=== PATIENT | male | born 1930 | race Caucasian/White ===

== ENCOUNTER 2019-08-05 17:15 | Emergency (ER) | payer SELFPAY ==
[2019-08-05] MEDS ORDERED: Sodium Chloride 0.9% 10 ML Syringe FLUSH PRN (17:33)
[2019-08-05 18:00] LABS: ANION GAP 13.9; CHLORIDE,CL 105 mmol/L (101-111); SODIUM,NA 137 mmol/L (135-145)
--- NOTE | 2019-08-05 18:43 | EDM.PDOC ---
Scribed by Daily Segura 08/05/19 [id number] for Jamshid Arshad MD ED HPI GENERAL MEDICAL PROBLEM - General Chief Complaint: Respiratory Problem Stated Complaint: AMBULANCE Time Seen by Provider: 08/05/19 17:25 Source of Information: Reports: Patient, EMS, EMS Notes Reviewed, RN, RN Notes Reviewed History Limitations: Reports: No Limitations - History of Present Illness INITIAL COMMENTS - FREE TEXT/NARRATIVE: Pt arrives from [facility] in [place] by ambulance with report of shortness of breath, fever, and A-fib. On arrival pt states that he was just discharged from [facility] for pneumonia. Pt states he wanted to be taken to [facility], and does not want to be in [place]. Pt denies chest pain or edema. Discharge summary from [facility] has been requested. [place] director was contacted and states that the patient was discharged from [facility] on 07/31/19 and Home Health Services began setting up his medications from him. Prior to the [facility] admission he was completely independent. Today they noticed that he had new onset confusion. They state that he was not able to take his medications and therefore did not take any of his medications today. The staff also noted a small amount of blood at the front of his underpants and believe that he had some hematuria. He was started on Eliquis sometime in the past couple 1 to 2 weeks. Onset: Unknown/Unsure - Related Data Allergies Allergy/AdvReac Type Severity Reaction Status Date / Time aspirin Allergy Dizziness Verified 08/05/19 17:44 cefdinir Allergy Abdominal Verified 08/05/19 17:44 Pain Penicillins Allergy Swelling Verified 08/05/19 17:44 Home Meds: Home Meds Apixaban [Eliquis] 5 mg PO BID 08/05/19 [History] Garlic 1 each PO DAILY 08/05/19 [History] Levofloxacin 750 mg PO ASDIRECTED 08/05/19 [History] Lisinopril [Zestril] 10 mg PO DAILY 08/05/19 [History] Metoprolol Succinate [Toprol XL 100mg] 100 mg PO DAILY 08/05/19 [History] Polyethylene Glycol 3350 [Gavilax] 8.5 gm PO DAILY 08/05/19 [History] Past Medical History Cardiovascular History: Reports: Afib Respiratory History: Reports: Other (See Below) (Pneumonia) Social & Family History - Family History Family Medical History: Unobtainable - Tobacco Use Smoking Status *Q: Former Smoker Tobacco Use Within Last Twelve Months: Cigarettes - Alcohol Use Alcohol Use History: No - Recreational Drug Use Recreational Drug Use: No - Living Situation & Occupation Living situation: Reports: , Assisted Living Occupation: Retired ED ROS GENERAL - Review of Systems Review Of Systems: Comprehensive ROS is negative, except as noted in HPI. ED EXAM, GENERAL - Physical Exam Exam: See Below Exam Limited By: No Limitations General Appearance: Alert, No Apparent Distress, Other (Frail elderly appearing male) Eye Exam: Bilateral Eye: Normal Inspection Nose: Normal Inspection, Normal Mucosa, No Blood Throat/Mouth: Normal Inspection, Normal Lips, Normal Voice, No Airway Compromise Head: Atraumatic, Normocephalic Neck: Normal Inspection, Supple, Non-Tender, Full Range of Motion Respiratory/Chest: No Respiratory Distress, No Accessory Muscle Use, Decreased Breath Sounds, Crackles, Rales Cardiovascular: Normal Peripheral Pulses, No Edema, Irregularly Irregular GI/Abdominal: Normal Bowel Sounds, Soft, Non-Tender, No Organomegaly, No Distention, No Abnormal Bruit, No Mass Extremities: Normal Inspection, Normal Range of Motion, Non-Tender, Normal Capillary Refill, No Pedal Edema Neurological: Alert, Oriented, CN II-XII Intact, No Motor/Sensory Deficits, Confused (mild) Psychiatric: Normal Mood Skin Exam: Warm, Dry, Normal Color, No Rash EKG INTERPRETATION EKG Date: 08/05/19 Time: 17:33 Rhythm: A-Fib (with PVCs.) Rate (Beats/Min): 104 [place]: LAD-Left [place] Deviation P-Wave: Absent QRS: RBBB (inferior Q waves, age indeterminate.) ST-T: Other (nonspecific changes, not acute) QT: Normal Comparison: NA - No Prior EKG Course - Vital Signs Last Recorded V/S: Last Vital Signs Temp 100.1 F 08/05/19 17:27 Pulse 60 08/05/19 17:27 Resp 20 08/05/19 17:27 BP 117/92 H 08/05/19 17:27 Pulse Ox 97 08/05/19 17:27 - Orders/Labs/Meds Orders: Active Orders 24 hr Category Date Time Status EKG 12 Lead [EKG Documentation Completion] [RC] STAT Care 08/05/19 17:33 Active Peripheral IV Care [RC] . DIRECTED Care 08/05/19 17:34 Active Chest 1V Frontal [CR] Stat Exams 08/05/19 17:33 Taken CULTURE BLOOD [BC] Stat Lab 08/05/19 17:34 Received CULTURE BLOOD [BC] Stat Lab 08/05/19 18:07 Received Sodium Chloride 0.9% [Saline Flush] Med 08/05/19 17:33 Active 10 ml FLUSH ASDIRECTED PRN Blood Culture x2 Reflex Set [OM.PC] Stat Oth 08/05/19 17:33 Ordered Peripheral IV Insertion Adult [OM.PC] Stat Oth 08/05/19 17:33 Ordered Medication Orders Sodium Chloride (Saline Flush) 10 ml FLUSH ASDIRECTED PRN PRN Reason: Keep Vein Open Last Admin: 08/05/19 17:57 Dose: 10 ml Labs: Laboratory Tests 08/05/19 08/05/19 08/05/19 Range/Units 17:34 17:34 17:34 WBC 9.0 (5.0-10.0) 10^3/uL RBC 4.54 L (4.6-6.2) 10^6/uL Hgb 13.0 L (14.0-18.0) g/dL Hct 37.9 L (40.0-54.0) % MCV 83.5 (80-100) fL MCH 28.6 (27.0-34.0) pg MCHC 34.3 (33.0-35.0) g/dL Plt Count 235 (150-450) 10^3/uL Neut % (Auto) 77.3 H (42.2-75.2) % Lymph % (Auto) 9.4 L (20.5-50.1) % [place] % (Auto) 12.9 H (2-8) % Eos % (Auto) 0.1 L (1.0-3.0) % Baso % (Auto) 0.3 (0.0-1.0) % PT 12.7 H (9.0-12.0) SEC INR 1.3 H (0.9-1.2) Sodium 137 (135-145) mmol/L Potassium 3.9 (3.6-5.0) mmol/L Chloride 105 (101-111) mmol/L Carbon Dioxide 22.0 (21.0-31.0) mmol/L Anion Gap 13.9 BUN 26 H (7-18) mg/dL Creatinine 1.6 H (0.6-1.3) mg/dL Est Cr Clr Drug Dosing TNP Estimated GFR (MDRD) 41 BUN/Creatinine Ratio 16.25 Glucose 119 H (74-105) mg/dL Lactic Acid (0.5-2.0) mmol/L Calcium 9.1 (8.4-10.2) mg/dl Total Bilirubin 2.0 H (0.2-1.0) mg/dL AST 25 (10-42) IU/L ALT 17 (10-60) IU/L Alkaline Phosphatase 69 (42-121) IU/L Troponin I 0.04 H* (0.00-0.02) ng/ml B-Natriuretic Peptide 1120 H (0-100) pg/ml Total Protein 6.9 (6.7-8.2) g/dl Albumin 4.0 (3.2-5.5) g/dl Globulin 2.9 Albumin/Globulin Ratio 1.38 Urine Color (YELLOW) Urine Appearance (CLEAR) Urine pH (5.0-9.0) Ur Specific [place] (1.005-1.030) Urine Protein (NEGATIVE) Urine Glucose (UA) (NEGATIVE) Urine Ketones (NEGATIVE) Urine Occult Blood (NEGATIVE) Urine Nitrite (NEGATIVE) Urine Bilirubin (NEGATIVE) Urine Urobilinogen (0.2-1.0) mg/dL Ur Leukocyte Esterase (NEGATIVE) Urine RBC /HPF Urine WBC (0-5/HPF) /HPF Ur Epithelial Cells (NOT SEEN) /HPF Amorphous Sediment (NOT SEEN) /HPF Urine Bacteria (0-FEW/HPF) /HPF Urine Mucus (NOT SEEN) /LPF 08/05/19 08/05/19 Range/Units 17:34 18:10 WBC (5.0-10.0) 10^3/uL RBC (4.6-6.2) 10^6/uL Hgb (14.0-18.0) g/dL Hct (40.0-54.0) % MCV (80-100) fL MCH (27.0-34.0) pg MCHC (33.0-35.0) g/dL Plt Count (150-450) 10^3/uL Neut % (Auto) (42.2-75.2) % Lymph % (Auto) (20.5-50.1) % [place] % (Auto) (2-8) % Eos % (Auto) (1.0-3.0) % Baso % (Auto) (0.0-1.0) % PT (9.0-12.0) SEC INR (0.9-1.2) Sodium (135-145) mmol/L Potassium (3.6-5.0) mmol/L Chloride (101-111) mmol/L Carbon Dioxide (21.0-31.0) mmol/L Anion Gap BUN (7-18) mg/dL Creatinine (0.6-1.3) mg/dL Est Cr Clr Drug Dosing Estimated GFR (MDRD) BUN/Creatinine Ratio Glucose (74-105) mg/dL Lactic Acid 2.1 H* (0.5-2.0) mmol/L Calcium (8.4-10.2) mg/dl Total Bilirubin (0.2-1.0) mg/dL AST (10-42) IU/L ALT (10-60) IU/L Alkaline Phosphatase (42-121) IU/L Troponin I (0.00-0.02) ng/ml B-Natriuretic Peptide (0-100) pg/ml Total Protein (6.7-8.2) g/dl Albumin (3.2-5.5) g/dl Globulin Albumin/Globulin Ratio Urine Color [place] (YELLOW) Urine Appearance Slightly cloudy (CLEAR) Urine pH 5.0 (5.0-9.0) Ur Specific [place] >= 1.030 (1.005-1.030) Urine Protein 30 H (NEGATIVE) Urine Glucose (UA) Negative (NEGATIVE) Urine Ketones Negative (NEGATIVE) Urine Occult Blood Large H (NEGATIVE) Urine Nitrite Negative (NEGATIVE) Urine Bilirubin Small H (NEGATIVE) Urine Urobilinogen 1.0 (0.2-1.0) mg/dL Ur Leukocyte Esterase Negative (NEGATIVE) Urine RBC Packed H /HPF Urine WBC 5-10 H (0-5/HPF) /HPF Ur Epithelial Cells Few (NOT SEEN) /HPF Amorphous Sediment Moderate (NOT SEEN) /HPF Urine Bacteria Moderate H (0-FEW/HPF) /HPF Urine Mucus Moderate H (NOT SEEN) /LPF Influenza A/B: negative Meds: Medications Generic Name Dose Route Start Last Admin Trade Name Freq PRN Reason Stop Dose Admin Sodium Chloride 10 ml 08/05/19 17:33 08/05/19 17:57 Saline Flush FLUSH 10 ml ASDIRECTED PRN Administration Keep Vein Open - Radiology Interpretation Free Text/Narrative:: [facility] [place] [facility] Final Radiology Report Call: [phone] assistance Online chat: [email or web address] Name: MARIE BOOKER Age: 88Years M Date: 08/05/2019 SSN: -- : [id number] Study: XR CHEST 1 VIEW FRONTAL Requesting Physician: JAMSHID ARSHAD Images: 1 Addl Studies: Provided Clinical History: Contrast: Contrast Medium: Contrast Amount: Contrast Method: CONFIDENTIALITY STATEMENT This report is intended only for use by the referring physician, and only in accordance with law. If you received this in error, call [phone]. Page 1 of 1 PROCEDURE INFORMATION: Exam: XR Chest, 1 View Exam date and time: 08/05/2019 6:10 PM Age: 88 years old Clinical indication: Fever and shortness of breath TECHNIQUE: Imaging protocol: XR of the chest Views: 1 view. COMPARISON: No relevant prior studies available. FINDINGS: Tubes, catheters and devices: EKG leads overlie the chest. Lungs: See Heart/mediastinum Finding. Pleural space: There are no pleural effusions present. Heart/Mediastinum: This is to be right hilar fullness. This could be vascular in nature but a focal pneumonia or mass is not excluded. The pulmonary arteries are not enlarged. Bones/joints: Degenerative changes are seen in both shoulders. IMPRESSION: Prominence of the right hilum of indeterminate nature. Correlation with a PA and lateral series might be useful or CT might be considered. Thank you for allowing us to participate in the care of your patient. Dictated and Authenticated by: Jules Bennett MD - Re-Assessments/Exams Free Text/Narrative Re-Assessment/Exam: 08/05/19 18:10 Urine is grossly bloody with clots per RN. 08/05/19 18:38 Pt advised of need to be admitted due to fever, gross hematuria, elev. Troponin and elev. BNP. Pt prefers to be admitted at [facility], family agrees. Dr. Gates accepts the pt to [facility] as a direct admit. Departure - Departure Time of Disposition: 18:41 Disposition: DC/Tfer to Acute Hospital 02 Condition: Serious Clinical Impression: Elevated troponin, Gross hematuria, Fever of unknown origin CHF (congestive heart failure) Qualifiers: Heart failure type: unspecified Heart failure chronicity: unspecified Qualified Code(s): I50.9 - Heart failure, unspecified Altered mental status Qualifiers: Altered mental status type: transient alteration of awareness Qualified Code(s) : R40.4 - Transient alteration of awareness - Discharge Information *PRESCRIPTION DRUG MONITORING PROGRAM REVIEWED*: Not Applicable *COPY OF PRESCRIPTION DRUG MONITORING REPORT IN PATIENT SORAYA: Not Applicable Forms: ED Department Discharge, Interfacility Transfer EMTALA Sepsis Event Note - Focused Exam Vital Signs: Vital Signs Temp Pulse Resp BP Pulse Ox 08/05/19 17:27 100.1 F 60 20 117/92 H 97 Date Exam was Performed: 08/05/19 Time Exam was Performed: 18:37 - My Orders Last 24 Hours: My Active Orders 08/05/19 17:33 EKG 12 Lead [EKG Documentation Completion] [RC] STAT Chest 1V Frontal [CR] Stat Sodium Chloride 0.9% [Saline Flush] 10 ml FLUSH ASDIRECTED PRN Blood Culture x2 Reflex Set [OM.PC] Stat Peripheral IV Insertion Adult [OM.PC] Stat 08/05/19 17:34 Peripheral IV Care [RC] . DIRECTED CULTURE BLOOD [BC] Stat 08/05/19 18:07 CULTURE BLOOD [BC] Stat - Assessment/Plan Last 24 Hours: My Active Orders 08/05/19 17:33 EKG 12 Lead [EKG Documentation Completion] [RC] STAT Chest 1V Frontal [CR] Stat Sodium Chloride 0.9% [Saline Flush] 10 ml FLUSH ASDIRECTED PRN Blood Culture x2 Reflex Set [OM.PC] Stat Peripheral IV Insertion Adult [OM.PC] Stat 08/05/19 17:34 Peripheral IV Care [RC] . DIRECTED CULTURE BLOOD [BC] Stat 08/05/19 18:07 CULTURE BLOOD [BC] Stat I have read and agree with the documentation that has been completed regarding this visit. By signing this record, I attest that the documentation was completed in my physical presence and is an accurate record of the encounter.
== END 2019-08-05 19:10 ==
LOC: DL.ED 17:15
DX: I50.9 Heart failure, unspecified (principal); R50.9 Fever, unspecified; R40.4 Transient alteration of awareness; R79.89 Other specified abnormal findings of blood chemistry; R31.0 Gross hematuria; I48.91 Unspecified atrial fibrillation; Z87.891 Personal history of nicotine dependence; Z88.0 Allergy status to penicillin; Z88.8 Allergy status to other drugs, medicaments and biological substances; Z79.01 Long term (current) use of anticoagulants; Z79.899 Other long term (current) drug therapy
CPT/HCPCS: 36415; 71045; 80053; 81001; 83605; 83880; 84484; 85025; 85610; 87040; 87804; 93005; 99285-25

== ENCOUNTER 2019-10-12 11:16 | Emergency (ER) | payer MEDICARE, OTHER ==
--- NOTE | 2019-10-12 11:42 | EDM.PDOC ---
ED HPI GENERAL MEDICAL PROBLEM - General Chief Complaint: Respiratory Problem Stated Complaint: SOB Time Seen by Provider: 10/12/19 11:20 Source of Information: Reports: Patient, EMS, RN History Limitations: Reports: No Limitations - History of Present Illness INITIAL COMMENTS - FREE TEXT/NARRATIVE: 88 year old male who present to the ER with EMS with complaints of shortness of breath. Patient lives at an assisted living and staff was called EMS because he had a cough and SOB x 3 days. Patient reports he has been coughing up brown sputum intermittently. Patient's oxygen sats was 81 - 82 % on room air and up to 92% on 6 L NC. Patient is a poor historian and cannot provide a a history of events. He is currently on Lisinopril 30 mg and lives alone. He has not travel or been around anybody sick. He denies any fever or chills. PMH significant for CHF and elevated troponin. - Related Data Allergies Allergy/AdvReac Type Severity Reaction Status Date / Time aspirin Allergy Dizziness Verified 08/05/19 17:44 cefdinir Allergy Abdominal Verified 08/05/19 17:44 Pain Penicillins Allergy Swelling Verified 08/05/19 17:44 Home Meds: Home Meds Apixaban [Eliquis] 5 mg PO BID 08/05/19 [History] Garlic 1 each PO DAILY 08/05/19 [History] Levofloxacin 750 mg PO ASDIRECTED 08/05/19 [History] Lisinopril [Zestril] 10 mg PO DAILY 08/05/19 [History] Metoprolol Succinate [Toprol XL 100mg] 100 mg PO DAILY 08/05/19 [History] Polyethylene Glycol 3350 [Gavilax] 8.5 gm PO DAILY 08/05/19 [History] Past Medical History HEENT History: Reports: Impaired Vision Cardiovascular History: Reports: Afib Respiratory History: Reports: Other (See Below) (Pneumonia) - Past Surgical History GI Surgical History: Reports: Hernia, Abdominal Social & Family History - Family History Family Medical History: Unobtainable - Caffeine Use Caffeine Use: Reports: Coffee - Living Situation & Occupation Living situation: Reports: , Assisted Living Occupation: Retired ED ROS GENERAL - Review of Systems Review Of Systems: Comprehensive ROS is negative, except as noted in HPI. ED EXAM, GENERAL - Physical Exam Exam: See Below Exam Limited By: Altered Mental Status (Poor historian) General Appearance: Alert, No Apparent Distress Ears: Normal External Exam, Other (Hard of hearing, and Bilateral TM impacted with wax) Nose: Normal Inspection, Normal Mucosa, No Blood Throat/Mouth: Normal Inspection, Normal Lips, Normal Teeth, Normal Gums, Normal Oropharynx, Normal Voice, No Airway Compromise Head: Atraumatic, Normocephalic Neck: Normal Inspection, Supple, Non-Tender, Full Range of Motion Respiratory/Chest: No Respiratory Distress, Other (diffused diminished lungs sounds) Cardiovascular: Other (irregular rhythm, bilateral ankle edema) Peripheral Pulses: 2+: Posterior Tibial (L), Posterior Tibial (R), Dorsalis Pedis (L), Dorsalis Pedis (R) GI/Abdominal: Normal Bowel Sounds, Soft, Non-Tender, No Organomegaly, No Distention (Male) Exam: Hernia (umbilical) Back Exam: Normal Inspection Extremities: Normal Range of Motion, Non-Tender, Pedal Edema (bilateral ankle 2 + pitting) Neurological: Alert, Oriented (to self and place) Psychiatric: Normal Affect, Normal Mood Skin Exam: Warm, Intact Lymphatic: No Adenopathy Course - Vital Signs Last Recorded V/S: Last Vital Signs Temp 97.2 F 10/12/19 11:35 Pulse 70 10/12/19 11:35 Resp 18 10/12/19 11:35 BP 101/82 10/12/19 11:35 Pulse Ox 100 10/12/19 11:35 - Orders/Labs/Meds Orders: Active Orders 24 hr Category Date Time Status EKG 12 Lead [EKG Documentation Completion] [RC] URGENT Care 10/12/19 11:31 Active Chest 1V Frontal [CR] Urgent Exams 10/12/19 12:20 Taken Chest 2V [CR] Stat Exams 10/12/19 11:31 Ordered UA W/DEVIN RFLX IF INDICATED [URIN] Urgent Lab 10/12/19 11:29 Ordered Diltiazem 125 MG in NS @ 5 MG/HR(100ml) Med 10/12/19 12:30 Ordered Diltiazem 125 mg Sodium Chloride 0.9% [Normal Saline] 100 ml IV TITRATE Isolation [COMM] Routine Oth 10/12/19 11:23 Active Medication Orders Diltiazem HCl 125 mg/ Sodium (Chloride) 125 mls @ 5 mls/hr IV TITRATE DINORA; Protocol Labs: Laboratory Tests 10/12/19 10/12/19 Range/Units 11:41 11:41 WBC 5.6 (5.0-10.0) 10^3/uL RBC 4.98 (4.6-6.2) 10^6/uL Hgb 13.4 L (14.0-18.0) g/dL Hct 40.7 (40.0-54.0) % MCV 81.7 (80-100) fL MCH 26.9 L (27.0-34.0) pg MCHC 32.9 L (33.0-35.0) g/dL Plt Count 285 (150-450) 10^3/uL Neut % (Auto) 62.9 (42.2-75.2) % Lymph % (Auto) 25.0 (20.5-50.1) % [place] % (Auto) 9.8 H (2-8) % Eos % (Auto) 1.6 (1.0-3.0) % Baso % (Auto) 0.7 (0.0-1.0) % Sodium 142 (136-145) mmol/L Potassium 3.7 (3.5-5.1) mmol/L Chloride 107 (98-107) mmol/L Carbon Dioxide 20 L (21-32) mmol/L Anion Gap 18.7 H (7-13) mEq/L BUN 31 H (7-18) mg/dL Creatinine 1.35 H (0.70-1.30) mg/dL Est Cr Clr Drug Dosing 36.04 mL/min Estimated GFR (MDRD) 50 BUN/Creatinine Ratio 23.0 (No establ ref range) Glucose 119 H (74-99) mg/dL Calcium 8.7 (8.5-10.1) mg/dL Total Bilirubin 1.7 H (0.2-1.0) mg/dL AST 18 (15-37) U/L ALT 22 (16-63) U/L Alkaline Phosphatase 86 (46-116) U/L Troponin I 0.340 H* (0.000-0.056) ng/mL B-Natriuretic Peptide 663 H (0-100) pg/ml Total Protein 6.8 (6.4-8.2) g/dL Albumin 3.7 (3.4-5.0) g/dL Globulin 3.1 Albumin/Globulin Ratio 1.2 Meds: Medications Generic Name Dose Route Start Last Admin Trade Name Mignon PRN Reason Stop Dose Admin Diltiazem HCl 125 mg/ Sodium 125 mls @ 5 mls/hr 10/12/19 12:30 Chloride IV TITRATE DINORA Protocol 5 MG/HR - Re-Assessments/Exams Free Text/Narrative Re-Assessment/Exam: EKG, Labs and chest xray results reviewed. Reviewed case with Dr. Han who accepted patient for transfer. Cardizem drip initiated per protocol. Patient's POA Gerry and patient in agreement to plan. Departure - Departure Time of Disposition: 12:32 Disposition: DC/Tfer to Acute Hospital 02 Condition: Fair Clinical Impression: Elevated troponin Afib Qualifiers: Atrial fibrillation type: unspecified Qualified Code(s): I48.91 - Unspecified atrial fibrillation CHF (congestive heart failure) Qualifiers: Heart failure type: unspecified Heart failure chronicity: unspecified Qualified Code(s): I50.9 - Heart failure, unspecified - Discharge Information Forms: ED Department Discharge, [facility] S[facility] Event Note - Focused Exam Vital Signs: Vital Signs Temp Pulse Resp BP Pulse Ox 10/12/19 11:35 97.2 F 70 18 101/82 100 Date Exam was Performed: 10/12/19 Time Exam was Performed: 12:28 - My Orders Last 24 Hours: My Active Orders 10/12/19 11:23 Isolation [COMM] Routine 10/12/19 11:29 UA W/DEVIN RFLX IF INDICATED [URIN] Urgent 10/12/19 11:31 EKG 12 Lead [EKG Documentation Completion] [RC] URGENT Chest 2V [CR] Stat 10/12/19 12:20 Chest 1V Frontal [CR] Urgent 10/12/19 12:30 Diltiazem 125 MG in NS @ 5 MG/HR(100ml) Diltiazem 125 mg Sodium Chloride 0.9% [Normal Saline] 100 ml IV TITRATE - Assessment/Plan Last 24 Hours: My Active Orders 10/12/19 11:23 Isolation [COMM] Routine 10/12/19 11:29 UA W/DEVIN RFLX IF INDICATED [URIN] Urgent 10/12/19 11:31 EKG 12 Lead [EKG Documentation Completion] [RC] URGENT Chest 2V [CR] Stat 10/12/19 12:20 Chest 1V Frontal [CR] Urgent 10/12/19 12:30 Diltiazem 125 MG in NS @ 5 MG/HR(100ml) Diltiazem 125 mg Sodium Chloride 0.9% [Normal Saline] 100 ml IV TITRATE
[2019-10-12 12:11] LABS: ANION GAP 18.7 mEq/L (7-13)
[2019-10-12] MEDS ORDERED: Diltiazem 125 MG in Sodium Chloride 0.9% 100 ML IV SCH (12:30)
--- NOTE | 2019-10-12 12:38 | CR ---
EXAMINATION: Chest 1V Frontal SEX: Male AGE: 88 years CLINICAL HISTORY: 88-year-old male experiencing shortness of breath (SOB). Comparison chest film 05 August 2019. INTERPRETATION: Abnormal. 1. Asymmetric dense, new consolidation lower half of the right hemithorax since 05 August 2019 exam. (Meniscus consistent with large subpulmonic pleural effusion) 2. Underlying infiltrate, atelectasis or infarct are differential consideration. 3. Asymmetric prominence of the pulmonary vessels on the right relatively unchanged i.e. doubt new underlying hilar or mediastinal lymphadenopathy however suggest CT with contrast may prove helpful. 4. Chronic mild prominence cardiac silhouette but without increased pulmonary vascular congestion, new cephalization of flow or alveolar edema. 5. No lung mass or other focal lobar consolidation. CONCLUSION: Abnormal and changed (see right lung base above) in the interval since 05 August 2019 exam.
== END 2019-10-12 13:15 ==
LOC: DL.ED 11:16
DX: I50.9 Heart failure, unspecified (principal); I48.91 Unspecified atrial fibrillation; R74.8 Abnormal levels of other serum enzymes; Z88.5 Allergy status to narcotic agent; Z88.0 Allergy status to penicillin; Z88.8 Allergy status to other drugs, medicaments and biological substances; Z79.899 Other long term (current) drug therapy
CPT/HCPCS: 36415; 71045; 80053; 83880; 84484; 85025; 87804; 93005; 96365; 99284; 99285-25; J3490; J7050